=== PATIENT | male | born 1995 | race Caucasian/White ===

== ENCOUNTER 2023-04-29 07:53 | Emergency (ER) | payer OTHER, SELFPAY ==
[2023-04-29 08:02] VITALS: BP 116/68
--- NOTE | 2023-04-29 09:21 | ED.GENMED ---
History of Present Illness
General
Chief Complaint: Medication Reaction
Source: patient
Exam Limitations: none
Time Seen by Provider: 04/29/23 08:52
Nursing documentation reviewed up to this point in time: agreed with
Travel History
Have you had any contact with someone who has COVID-19?: No
Do you have any symptoms of coronavirus? Fever > 100 degrees, chills, cough, shortness of breath, sore throat, loss of taste or smell, muscle aches, or headache?: No
History of Present Illness
History of Present Illness:
27-year-old male presents emergency department due to feeling disconnected and numb, and concerned that the medications are causing this. He is depressed. He is looking for more help.
Past History
Past History
ED Past Medical History: Psychiatric (depression, anxiety)
ED Past Surgical History: Appendectomy
Social History
Tobacco: Non-smoker
Alcohol: Occasional
Drug: None
Personal: Single
Living: with family
Employment: Employed ([employer])
Family History
Family History: Other (Noncontributory)
Review of Systems
Review of Systems
Allergies reviewed?: Yes
All Other Systems: Not applicable
Constitutional: Reports no symptoms
EENT: Reports no symptoms
Respiratory: Reports no symptoms
Cardiac: Reports no symptoms
ABD/GI: Reports no symptoms
: Reports no symptoms
Musculoskeletal: Reports no symptoms
Skin: Reports no symptoms
Neurological: Reports numbness
Endocrine: Reports no symptoms
Hematologic/Lymphatic: Reports no symptoms
Psychiatric: Reports depression
Phy Exam
Physical Exam
Physical Exam:
Physical Exam
General: no apparent distress, not acutely ill
Neck: supple. no meningeal signs. normal posterior pharynx
Heart: s1/s2 regular rate and rhythm, no murmur. equal radial
pulses.
HEENT: Pupils equal round reactive to light, EOMI
Lungs: no acute respiratory distress. clear bilaterally
Abdomen: normal bowel sounds. not tender. no CVAT
Neuro: alert and oriented. no focal neurological deficits cranial nerves II through XII intact
Skin: no rash
Psychiatric: well kept. interactive and cooperative
Extremities: no edema. no calf tenderness. negative homans. good distal pulses
Course
Orders/Labs/Results
Orders:
Orders
04/29/23 09:18
Electrocardiogram (*1) Stat
Reason for Study: Other
Other Reason for Exam: paresthesias
EKG- Treatment ONCE
04/29/23 10:04
Urine Drug Abuse Screen Urgent
Date Specimen was Collected: 04/29/23
Time Specimen was Collected: 09:53
Abnormal Lab Results
04/29/23
10:04
Ur Tricyclics Screen Positive H
(Negative)
Vital Signs
Initial and Last Documented VS:
Initial Vital Signs
Temp Pulse Resp BP Pulse Ox
98.6 F 68 18 116/68 96
04/29/23 08:02 04/29/23 08:02 04/29/23 08:02 04/29/23 08:02 04/29/23 08:02
Last Documented Vital Signs
Temp Pulse Resp BP Pulse Ox
98.6 F 68 18 116/68 96
04/29/23 08:02 04/29/23 08:02 04/29/23 08:02 04/29/23 08:02 04/29/23 08:02
MDM/Problems Addressed
Differential Diagnosis Includes:
Medication interaction, depression
MDM/Problems Addressed:
27-year-old male with depression, possibly medication side effect versus known effect. No signs of dysrhythmia, normal neurologic exam. She will be evaluated further by crisis.
Chronic conditions affecting care: Psychiatric illness (Depression)
Acute Exacerbation and/or Progression of Chronic Illness: Psychiatric illness (Depression)
*Pulse Oximetry
Patient hypoxic: no
*EKG
Interpreted by ED Provider?: Yes
EKG Intrepretation Date: 04/29/23
EKG Intrepretation Time: 09:59
Interpretation: abnormal
Comparison EKG: no comparison EKG present
Heart Rate: 56
Rate: bradycardiac
Rhythm: sinus
[place]: normal axis
Interval: normal interval
QRS Pattern: normal QRS
Ischemia: no ischemia
*Service Station Attendant Interpretation
Rate: Service Station Attendant- N/A
*Critical Care Note
Total Time (30-74mins, 75-104mins- exclusive of procedures): Not Applicable
Patient Management
Social determinants of health affecting care: Living situation and Poor outpatient follow-up
Escalation/DeEscalation of care consider admission/obs:
admit not indicated, will consider psychiatric hospitalization
ED Attending Note
-
Portions of this chart may have been created with voice recognition software.� Occasional wrong word or��sound alike� substitutions may have occurred due to the inherent limitations of voice recognition software.
Discharge Plan
Departure
Patient Disposition: [facility]
Date of Disposition: 04/29/23
Time of Disposition: 12:11
Patient with high blood pressure during this ER visit?: No
Condition: Good
Discharge Problem:
Depression
Instructions: Depression in adults
Prescriptions:
No Action
fluoxetine 20 MG capsule
20 mg PO DAILY
Minipress:
2 mg PO HS
zolpidem 10 MG tablet
10 mg PO HS PRN (Reason: insomnia) Qty: 10 0RF
zolpidem 10 MG tablet
10 mg PO HSPRN PRN (Reason: insomnia) Qty: 5 0RF
cephalexin 500 mg capsule
500 mg PO QID 7 Days Qty: 28 0RF
ondansetron 4 mg Tablet,Disintegrating
4 mg PO TIDPRN PRN (Reason: nausea/vomiting) Qty: 8 0RF
Referrals:
Poonam Correia, DO [Family Provider] -
Interventions
Interventions:
*Risk Screen - Suicide Last Done: 04/29/23 10:11
*General Assessment Last Done: 04/29/23 10:11
*Neglect/Abuse Screening Last Done: 04/29/23 10:11
ED- Fall Risk Assessment Last Done: 04/29/23 12:24
*ED COVID-19 Vaccine History Last Done: 04/29/23 12:24
*Nursing Disposition Last Done: 04/29/23 12:24
ED-Skin Assessment Last Done: 04/29/23 12:24
ED- Pulmonary Assessment Last Done: 04/29/23 10:11
ED-EENT Assessment Last Done: 04/29/23 12:24
Discharge Date and Time
Discharge Date/Time: 04/29/23 12:25
[2023-04-29 10:40] LABS: Amphetamines Negative (Negative); Barbiturates Negative (Negative); Benzodiazepines Negative (Negative); Tricyclic Antidepressants Positive (Negative)
[2023-04-29 10:41] LABS: Buprenorphine Negative (Negative); Cocaine Negative (Negative); Marijuana Negative (Negative); Methadone Negative (Negative); Methamphetamines Negative (Negative); Opiates Negative (Negative); Phencyclidine Negative (Negative)
== END 2023-04-29 12:25 ==
LOC: EMR 07:53
PROVIDERS: EMERGENCY PHYSICIAN Emergency Medicine; FAMILY PHYSICIAN Family Medicine
DX: F32.A Depression, unspecified (principal); F41.9 Anxiety disorder, unspecified; Z90.49 Acquired absence of other specified parts of digestive tract
CPT/HCPCS: 99283; 80306; 93005

== ENCOUNTER 2024-03-07 06:34 | Emergency (ER) | payer OTHER, SELFPAY ==
[2024-03-07 06:40] VITALS: BP 112/68
--- NOTE | 2024-03-07 06:48 | ED.GENMED ---
History of Present Illness
General
Chief Complaint: Abdominal Pain
Time Seen by Provider: 03/07/24 06:48
History of Present Illness
History of Present Illness:
TIME OF INITIAL ENCOUNTER: 7 AM
HPI: Patient presents with left upper quadrant pain along with chest discomfort. This started around 3:30 AM this morning. He reports having an endoscopy 2 years ago when he was diagnosed with celiac disease but reports no abnormality noted to the
stomach. He has an appointment to [facility] tomorrow.
EXAM:
GENERAL: Well appearing in no distress
HEENT: Moist oral mucosa
CARDIOVASCULAR: No murmurs, normal heart rate, regular rhythm, No chest wall tenderness
PULMONARY: No respiratory distress, breath sounds are clear and equal
ABDOMEN: Soft with no peritoneal signs, mild diffuse abdominal tenderness, of note there is some tenderness just with very light touch to the left upper quadrant but no rash
NEUROLOGIC: Excellent strength all extremities, no coordination deficits
PSYCHIATRIC: Appropriate mental status, normal insight and judgement
EXTREMITIES: Nontender, no edema, moves all extremities equally
SKIN: No rash, no lesions
NUMBER AND COMPLEXITY OF PROBLEMS ADDRESSED AT THE ENCOUNTER
� Chronic conditions affecting care: Celiac disease, PTSD, OCD, has had appendectomy in the past
� Acute Exacerbation and/or Progression of Chronic Illness: This is an acute problem
� Differential Diagnosis includes: GERD, pancreatitis, malignancy unlikely (reported weight loss), esophagitis, gastritis, constipation
AMOUNT AND/OR COMPLEXITY OF DATA TO BE REVIEWED AND ANALYZED
� I performed an independent evaluation of and my interpretation is:
EKG: Sinus 58, normal axis, nonspecific ST normality, septal Q waves unchanged from 04/29/2023
CT: CT imaging shows no acute abnormality
X-rays:
Laboratory Studies: CBC and chemistries including lipase and LFTs are normal
Other:
� Review of other/old records: I reviewed records, the patient was seen here with depression in April of this year
� Clinical information was obtained by an independent historian: I spoke to mother at bedside
� Prescriptions/Medications Considered but not given:
� Further testing considered but not performed:
RISK OF COMPLICATIONS AND/OR MORBIDITY OR MORTALITY OF PATIENT MANAGEMENT
� Social determinants of health affecting care: Lives at home
� Discussion with other providers:
� Escalation of care including admission/observation vs risk of discharge considered: CT imaging as well as lab work is unremarkable.
ANY OTHER UPDATES:
9:30 AM: On reassessment, the patient overall reports improvement after Zofran, Pepcid, Protonix was given. I recommended that takes a 2-week course of [id number] omeprazole. He has follow-up with his GI doctor ([facility]) tomorrow.
Past History
Past History
ED Past Medical History: Psychiatric (depression, anxiety)
ED Past Surgical History: Appendectomy
Social History
Tobacco: Non-smoker
Alcohol: Occasional
Drug: None
Personal: Single
Living: with family
Employment: Employed ([employer])
Family History
Family History: Other (Noncontributory)
Phy Exam
Physical Exam
Physical Exam:
See HPI
Course
Orders/Labs/Results
Orders:
Orders
03/07/24 06:44
ECG [Electrocardiogram (*1)] Urgent
Reason for Study: Abdominal Pain
EKG- Treatment ONCE
03/07/24 06:49
Famotidine [Pepcid] 20 mg IV NOW STA
03/07/24 07:05
CT Abd/pelvis W Iv Cont Urgent
Comment:
Reason For Exam: diffuse tender, pain more in LUQ
Troponin I Urgent
03/07/24 07:07
Ondansetron Injectable [Zofran] 4 mg IV NOW STA
03/07/24 07:19
Pantoprazole [Protonix IV] 40 mg .ROUTE .STK-MED ONE
03/07/24 07:29
Pantoprazole [Protonix IV] 40 mg IV NOW STA
03/07/24 07:45
Comprehensive Metabolic Panel Urgent
Lipase Urgent
03/07/24 08:00
Complete Blood Count/With Diff Urgent
03/07/24 08:29
Add On- LAB Urgent
Comments:: Lab cancelled CMP and Lipase, reordered CMP but not lipase
Tests Added?: lipase
Abnormal Lab Results
03/07/24
08:00
MPV 11.8 H fL
(7.4-10.4)
Monocytes % 9.4 H %
(1.7-9.3)
03/07/24 08:00
03/07/24 07:45
Vital Signs
Initial and Last Documented VS:
Initial Vital Signs
Temp Pulse Resp BP Pulse Ox
36.7 C 60 20 112/68 100
03/07/24 06:40 03/07/24 06:40 03/07/24 06:40 03/07/24 06:40 03/07/24 06:40
Last Documented Vital Signs
Temp Pulse Resp BP Pulse Ox
36.7 C 60 18 102/77 100
03/07/24 06:40 03/07/24 09:02 03/07/24 09:02 03/07/24 09:02 03/07/24 06:40
*Critical Care Note
Total Time (30-74mins, 75-104mins- exclusive of procedures): Not Applicable
ED Attending Note
-
Portions of this chart may have been created with voice recognition software.� Occasional wrong word or��sound alike� substitutions may have occurred due to the inherent limitations of voice recognition software.
Discharge Plan
Departure
Patient Disposition: Home (Routine Discharge)
Date of Disposition: 03/07/24
Time of Disposition: 09:28
Patient with high blood pressure during this ER visit?: Yes
Discharge Problem:
GERD (gastroesophageal reflux disease)
Instructions: Acid Reflux and GERD in Adults (DC)
Prescriptions:
New
ondansetron HCl 4 mg tablet
4 mg PO Q6H PRN (Reason: nausea and vomiting) Qty: 14 0RF
No Action
fluoxetine 20 MG capsule
20 mg PO DAILY
Minipress:
2 mg PO HS
zolpidem 10 MG tablet
10 mg PO HS PRN (Reason: insomnia) Qty: 10 0RF
zolpidem 10 MG tablet
10 mg PO HSPRN PRN (Reason: insomnia) Qty: 5 0RF
cephalexin 500 mg capsule
500 mg PO QID 7 Days Qty: 28 0RF
ondansetron 4 mg Tablet,Disintegrating
4 mg PO TIDPRN PRN (Reason: nausea/vomiting) Qty: 8 0RF
Referrals:
Poonam Correia, DO [Family Provider] -
Activity Restrictions/Additional Instructions:
Your symptoms may be related to GERD. I sent a prescription for Zofran to your pharmacy (for nausea). I recommend you take a 2-week course of [id number] omeprazole. Follow-up with your GI doctor tomorrow. Basic blood work including liver
and pancreas tests were normal. Return here if worse or other concerns. We also checked your heart number which shows no sign of heart attack.
CAT scan report:
Liver: Within normal limits.
Gallbladder: Unremarkable.
Bile Ducts: No bile duct dilatation.
Pancreas: Within normal limits.
Spleen: Normal in size.
Adrenals: No adrenal mass.
Kidneys/Ureters: No obstructive uropathy.
Bowel: No obstruction or wall thickening. Mild colonic fecal burden.
Appendix: Absent.
Peritoneum: No ascites or free air.
Vessels: No aortic aneurysm.
Retroperitoneum: No retroperitoneal periaortic mass or adenopathy.
Abdominal Wall: No anterior abdominal wall hernia.
Pelvis:
No free fluid or focal collection. No inflammatory reaction. No sidewall adenopathy or mass.
Interventions
Interventions:
*Risk Screen - Suicide Last Done: 03/07/24 06:40
*Neglect/Abuse Screening Last Done: 03/07/24 06:40
AG-[id number]-[id number] Assessment Last Done: 03/07/24 06:44
Discharge Date and Time
Print Language: NEPALI
[2024-03-07 06:52] VITALS: BP 104/75
[2024-03-07 07:00] VITALS: BP 116/72
[2024-03-07] MEDS: PEPCID 20 MG IV (07:31)
[2024-03-07] MEDS: ZOFRAN 4 MG IV (07:31)
[2024-03-07] MEDS: PROTONIX IV 40 MG IV (07:32)
[2024-03-07 07:51] LABS: Troponin I < 0.012 ng/ml
[2024-03-07 08:05] LABS: ALT (SGPT) 26 U/L (0-50); AST (SGOT) 30 U/L (17-59); Albumin 4.9 g/dl (3.5-5.0); Alkaline Phosphatase 57 U/L (38-126); Blood Urea Nitrogen 19 mg/dl (9-20); Calcium 10.2 mg/dl (8.4-10.2); Carbon Dioxide 25 mmol/L (22-30); Chloride 105 mmol/L (98-107); Glucose 92 mg/dl (70-99); Lipase 152 U/L (23-300); Potassium 4.7 mmol/L (3.5-5.1); Sodium 142 mmol/L (135-145); Total Bilirubin 0.5 mg/dl (0.2-1.3); Total Protein 7.7 g/dl (6.3-8.2); eGFR > 60.00
[2024-03-07 08:08] VITALS: BP 106/61
[2024-03-07 09:02] VITALS: BP 102/77
[2024-03-07 09:15] LABS: % Basophils 1.4 % (0-2); % Eosinophils 3.1 % (0-6); % Immature Granulocytes 0.2 % (0-0.5); % Lymphocytes 36.1 % (20.5-51.1); % Monocytes 9.4 % (1.7-9.3); % Neutrophils 49.8 % (42.2-75.2); Absolute Basophils 0.1 10^3/uL (0-0.2); Absolute Eosinophils 0.2 10^3/uL (0-0.7); Absolute Lymphocytes 1.8 10^3/uL (1.2-3.4); Absolute Monocytes 0.5 10^3/uL (0.1-0.6); Absolute Neutrophils 2.4 10^3/uL (1.4-6.5); Hematocrit 43.9 % (39.0-52.0); Hemoglobin 14.9 g/dL (13.0-18.0); Mean Corp Hgb Conc. 33.9 g/dL (33.0-37.0); Mean Corpuscular Hgb 28.4 pg (27.0-31.0); Mean Corpuscular Volume 83.8 fL (80.0-94.0); Mean Platelet Volume 11.8 fL (7.4-10.4); Nucleated Red Blood Cells % 0 % (-); Platelet Count 214 10^3/uL (130-400); Red Blood Cell Count 5.24 10^6/uL (4.70-6.10); White Blood Cell Count 4.9 10^3/uL (4.8-10.8)
== END 2024-03-07 09:37 | disposition home or self-care (01) ==
LOC: EMR 06:34
PROVIDERS: EMERGENCY PHYSICIAN Emergency Medicine; FAMILY PHYSICIAN Family Medicine
DX: K21.9 Gastro-esophageal reflux disease without esophagitis (principal)
CPT/HCPCS: 96374; 96375; 99284; 74177; 80053; 83690; 84484; 85025; 93005; Q9967

== ENCOUNTER 2024-03-12 09:16 | Emergency (ER) | payer OTHER, SELFPAY ==
[2024-03-12 09:18] VITALS: BP 133/70
[2024-03-12 10:17] VITALS: BP 127/80
[2024-03-12] MEDS: TYLENOL 1000 MG PO (10:32)
[2024-03-12] MEDS: ZOFRAN 4 MG IV (10:32)
[2024-03-12] MEDS: NSS 1000 IV (10:33)
--- NOTE | 2024-03-12 10:44 | ED.GENMED ---
History of Present Illness
<Beronica Saul MD, Resident - Last Filed: 03/12/24 10:59>
General
Chief Complaint: Dizziness
Time Seen by Provider: 03/12/24 09:53
History of Present Illness
History of Present Illness:
28 y/o male with pmhx of celiac disease, sleep apnea and PTSD presenting to the ED with dizziness, headache and vomiting. Pt notes woke up this morning at 5 am, and had a severe left sided headache (radiating to the left retroorbital) and felt dizzy
when standing up. Was walking to his truck when patient vomited. On his drive to work, patient had blurry vision and had to press puller. Denies vertigo, sensation loss, LOC, weakness, fever. Has had previous headaches but notes this time is more
severe (8/10). Called his PCP and was told to come to the hospital. Patient also notes loss of balance while walking but no fall. Also notes sharb chest pain on his left hemithorax that gets worse with movement. Patient is scheduled for colonoscopy
and endoscopy next week for blood in rectum and weight loss (20 lbs within 6 weeks, but notes loss of appetite). Patient notes chest pain is chronic and also SOB after climbing one flight of stairs.
Past History
<Beronica Saul MD, Resident - Last Filed: 03/12/24 10:59>
Past History
ED Past Medical History: Psychiatric (depression, anxiety) and Other (Sleep apnea, celiac disease)
ED Past Surgical History: Appendectomy and Orthopedic (Right tibial fracture)
Social History
Tobacco: Non-smoker
Alcohol: Occasional
Drug: None
Personal: Single
Living: with family
Employment: Employed ([employer])
Family History
Family History: Other (Noncontributory)
Review of Systems
<Beronica Saul MD, Resident - Last Filed: 03/12/24 10:59>
Review of Systems
Constitutional: Reports weight loss
EENT: Reports no symptoms
Respiratory: Reports no symptoms
Cardiac: Reports chest pain
ABD/GI: Reports nausea and vomiting
: Reports no symptoms
Musculoskeletal: Reports no symptoms
Skin: Reports no symptoms
Neurological: Reports dizzy and headache
Endocrine: Reports no symptoms
Hematologic/Lymphatic: Reports no symptoms
Psychiatric: Reports anxiety
Phy Exam
<Beronica Saul MD, Resident - Last Filed: 03/12/24 10:59>
Physical Exam
Physical Exam:
GENERAL: Alert, in no apparent distress.
EYE: pupils equal and reactive. No nystagmus.
NECK: Supple, no significant adenopathy.
ENT: o/p clr, mmm.
CARDIAC: Regular rhythm. Tachycardia. Tenderness on palpation of chest.
LUNGS: Clear breath sounds bilaterally, no acute respiratory distress, no wheezes/rales/rhonchi
ABDOMEN: Soft, without focal tenderness, no r/g, no cvat.
NEUROLOGICAL: Alert and oriented, no focal neuro deficits. Heel to gardner, finger to nose: negative
SKIN: Warm and dry, skin intact.
MUSCULOSKELETAL: No edema, well perfused. Muscle strength: 5/5
PSYCH: Normal and appropriate interaction. Appears anxious.
Course
<Beronica Saul MD, Resident - Last Filed: 03/12/24 10:59>
Orders/Labs/Results
Orders:
Orders
03/12/24 10:19
Electrocardiogram (*1) Urgent
Reason for Study: Chest Pain
EKG- Treatment ONCE
Acetaminophen [Tylenol] 1,000 mg PO NOW STA
Ondansetron Injectable [Zofran] 4 mg IV NOW STA
03/12/24 10:21
CT Head W/o Iv Contrast Urgent
Comment:
Reason For Exam: headache, dizziness
03/12/24 10:24
0.9% Sodium Chloride 1000 ml [Nss] 1,000 ml IV BOLUS
03/12/24 11:17
COVID-19 Antigen Urgent
Source: Nasal Swab
Complete Blood Count/With Diff Urgent
Troponin I Urgent
Influenza A+B Rapid Molecular Urgent
MALINA Source: Nasal Swab
Specimen Description:
03/12/24 11:51
Comprehensive Metabolic Panel Urgent
Lipase Urgent
03/12/24 12:31
Ketorolac [Toradol] 15 mg IV NOW STA
US Abdomen Complete/Upper Urgent
Comment:
Reason For Exam: RUQ pain, nausea, vomiting
Abnormal Lab Results
03/12/24
11:17
MPV 11.7 H fL
(7.4-10.4)
Monocytes % 10.4 H %
(1.7-9.3)
03/12/24 11:17
03/12/24 11:51
Vital Signs
Initial and Last Documented VS:
Initial Vital Signs
Pulse Resp BP Pulse Ox
71 18 133/70 99
03/12/24 09:18 03/12/24 09:18 03/12/24 09:18 03/12/24 09:18
Last Documented Vital Signs
Temp Pulse Resp BP Pulse Ox
36.6 C 59 12 101/62 99
03/12/24 13:46 03/12/24 12:30 03/12/24 12:30 03/12/24 14:00 03/12/24 14:15
<Bong Mendoza MD - Last Filed: 03/12/24 16:26>
Orders/Labs/Results
Orders:
Orders
03/12/24 10:19
Electrocardiogram (*1) Urgent
Reason for Study: Chest Pain
EKG- Treatment ONCE
Acetaminophen [Tylenol] 1,000 mg PO NOW STA
Ondansetron Injectable [Zofran] 4 mg IV NOW STA
03/12/24 10:21
CT Head W/o Iv Contrast Urgent
Comment:
Reason For Exam: headache, dizziness
03/12/24 10:24
0.9% Sodium Chloride 1000 ml [Nss] 1,000 ml IV BOLUS
03/12/24 11:17
COVID-19 Antigen Urgent
Source: Nasal Swab
Complete Blood Count/With Diff Urgent
Troponin I Urgent
Influenza A+B Rapid Molecular Urgent
MALINA Source: Nasal Swab
Specimen Description:
03/12/24 11:51
Comprehensive Metabolic Panel Urgent
Lipase Urgent
03/12/24 12:31
Ketorolac [Toradol] 15 mg IV NOW STA
US Abdomen Complete/Upper Urgent
Comment:
Reason For Exam: RUQ pain, nausea, vomiting
Abnormal Lab Results
03/12/24
11:17
MPV 11.7 H fL
(7.4-10.4)
Monocytes % 10.4 H %
(1.7-9.3)
03/12/24 11:17
03/12/24 11:51
Vital Signs
Initial and Last Documented VS:
Initial Vital Signs
Pulse Resp BP Pulse Ox
71 18 133/70 99
03/12/24 09:18 03/12/24 09:18 03/12/24 09:18 03/12/24 09:18
Last Documented Vital Signs
Temp Pulse Resp BP Pulse Ox
36.6 C 59 12 101/62 99
03/12/24 13:46 03/12/24 12:30 03/12/24 12:30 03/12/24 14:00 03/12/24 14:15
<Beronica Saul MD, Resident - Last Filed: 03/12/24 10:59>
MDM/Problems Addressed
Differential Diagnosis Includes:
Intracranial hemorrhage
ACS
Stroke
Migraine
Tension headache
Vasovagal
Panic attack
MDM/Problems Addressed:
- EKG, Troponin
- CBC, CMP
- CT Head w/o contrast
- COVID, Flu
- IVF
- Pain management
<Beronica Saul MD, Resident - Last Filed: 03/12/24 10:59>
*Critical Care Note
Total Time (30-74mins, 75-104mins- exclusive of procedures): Not Applicable
ED Attending Note
<Beronica Saul MD, Resident - Last Filed: 03/12/24 10:59>
-
Portions of this chart may have been created with voice recognition software.� Occasional wrong word or��sound alike� substitutions may have occurred due to the inherent limitations of voice recognition software.
<Bong Mendoza MD - Last Filed: 03/12/24 16:26>
ED Attending Note
Patient seen and examined by attending physician: Yes
I performed a history and physical exam of patient and discussed management with resident, I reviewed resident's note and agree with documented findings and plan of care.: Yes
ED Attending Note:
I have seen and evaluated the patient with a [id number] encounter. I have spoken to the resident and involved in the medical history, the physical exam, medical decision making.
Evaluation and management service: agree unless noted differently below.
Results interpretation: agree unless noted differently below.
Focused HPI: 28-year-old male with a past medical history of sleep apnea and PTSD presents to the emergency room with his sister for evaluation of headache, nausea, vomiting, dizziness. Patient reports that he woke up this morning around 5 AM to go
to work and while he was walking out to his truck he became very nauseated and vomited. He says that he noticed he was having a left-sided headache. He sat in his truck in the heat for a bit and drink some water and he was able to drive to work.
He says that on the way to work he was feeling a room spinning sensation/dizziness and was having some blurry vision�he describes that when he looks at light it appears blurry. He says that his symptoms were not improving and so he called his
primary doctor and apparently had a telemedicine visit and was told that he should be evaluated in the emergency room. He says that since arrival his symptoms have resolved with the exception of his headache. He says he no longer notices any
blurry vision or room spinning/dizziness. He has not had any recent illness/URI symptoms but does report that over the past few months he has been having postprandial nausea and abdominal discomfort as well as unintentional weight loss due to poor
food intake due to the symptoms. He says he is scheduled for upper and lower endoscopy as an outpatient within the next month.
Physical exam: Awake and alert, oriented x 3 and not in distress. His vital signs are all within normal limits. His head is normocephalic and atraumatic. He has a supple neck without meningeal signs. His pupils are equal round and reactive to
light bilaterally, approximately 4 mm. Extraocular movements are intact and he has no nystagmus. He has a negative Jos-Hallpike. His TMs are clear bilaterally. He has no cardiac rubs gallops or murmurs. His abdomen is soft, mildly tender in the
upper abdomen. His lungs are clear to auscultation bilaterally. Cranial nerves are intact 2 through 12 and speech is fluid with no dysarthria or aphasia. He has no limb ataxia. Motor and sensory function is intact and symmetric in the upper and
lower extremities both proximally and distally.
Medical Decision Makin-year-old male presents for evaluation after episode of nausea and vomiting associated with vertiginous symptoms and left-sided headache. Symptoms have improved although headache remains. He also reports that he has been
dealing with abdominal pains and nausea related to food and resultant weight loss over the past few months. Scheduled for outpatient GI follow-up. Vitals and exam as above. Will check labs including CBC and a CMP, lipase. Will check swabs for
COVID and flu. Check CT head. Check upper abdominal ultrasound. Check an EKG and troponin. Will treat symptomatically and reassess after the above.
Labs reviewed: CBC unremarkable, CMP no clinically significant abnormalities�notably normal LFTs. Lipase is normal. Troponin is undetectable and EKG showed sinus rhythm with no ischemic changes. CT head was negative for any acute pathology and
upper abdominal ultrasound although limited in evaluation of pancreas shows no cholelithiasis or other acute pathology. Clinical reassessment patient is feeling much better he says headache had resolved. He is walking around the room without any
dizziness or gait issues. Suspect likely peripheral vertigo caused his dizziness and vomiting today. Unclear cause for his chronic abdominal discomfort and weight loss but he is already scheduled for GI workup to this and and I think this can
proceed as an outpatient�no clear indication for hospital admission. Patient feels comfortable discharge. Spoke about return precautions and all questions answered.
Discharge Plan
Departure
Patient Disposition: Home (Routine Discharge)
Date of Disposition: 03/12/24
Time of Disposition: 14:17
Patient with high blood pressure during this ER visit?: No
Discharge Problem:
Vertigo, Headache, Abdominal pain
Instructions: Vertigo (a Type of Dizziness) (DC)
Prescriptions:
New
ondansetron 4 mg tablet,disintegrating
4 mg PO TIDPRN PRN (Reason: nausea/vomiting) Qty: 20 0RF
No Action
fluoxetine 20 MG capsule
20 mg PO DAILY
Minipress:
2 mg PO HS
zolpidem 10 MG tablet
10 mg PO HS PRN (Reason: insomnia) Qty: 10 0RF
zolpidem 10 MG tablet
10 mg PO HSPRN PRN (Reason: insomnia) Qty: 5 0RF
cephalexin 500 mg capsule
500 mg PO QID 7 Days Qty: 28 0RF
ondansetron 4 mg Tablet,Disintegrating
4 mg PO TIDPRN PRN (Reason: nausea/vomiting) Qty: 8 0RF
ondansetron HCl 4 mg tablet
4 mg PO Q6H PRN (Reason: nausea and vomiting) Qty: 14 0RF
Referrals:
Poonam Correia, DO [Family Provider] - Follow up in 2-3 days
Stand Alone Forms: Return to Work
Activity Restrictions/Additional Instructions:
Thank you for visiting the Emergency Department at [facility].
1. Please schedule a follow up appointment as directed. Call first thing tomorrow morning to make an appointment.
2. If indicated, please take your medications as instructed and indicated on discharge paperwork.
3. If any of your symptoms do not improve, or persist, or become more severe within 6-12 hours, please return to the emergency department for further care.
4. Please return to the emergency department if you develop a headache, neck pain/stiffness, fever greater than 100.4F, chest pain, shortness of breath, persistent nausea, vomiting, slurred speech, difficulty walking, numbness/tingling, weakness,
signs of infection or any other symptoms that are worrisome to you.
Please call [phone] if you have any questions.
Interventions
Interventions:
*Risk Screen - Suicide Last Done: 03/12/24 09:18
*General Assessment Last Done: 03/12/24 09:18
*Neglect/Abuse Screening Last Done: 03/12/24 09:18
*Nursing Disposition Last Done: 03/12/24 14:56
ED- Neurological Assessment Last Done: 03/12/24 10:23
ED Swallowing Screen Last Done: 03/12/24 10:23
Discharge Date and Time
Discharge Date/Time: 03/12/24 14:56
Print Language: JAPANESE
[2024-03-12 11:16] VITALS: BP 109/62; BMI 35.4
[2024-03-12 11:38] LABS: % Basophils 1.3 % (0-2); % Immature Granulocytes 0.2 % (0-0.5); % Lymphocytes 34.5 % (20.5-51.1); % Monocytes 10.4 % (1.7-9.3); % Neutrophils 50.6 % (42.2-75.2); Absolute Basophils 0.1 10^3/uL (0-0.2); Absolute Eosinophils 0.2 10^3/uL (0-0.7); Absolute Lymphocytes 1.9 10^3/uL (1.2-3.4); Absolute Monocytes 0.6 10^3/uL (0.1-0.6); Absolute Neutrophils 2.8 10^3/uL (1.4-6.5); Hematocrit 41.9 % (39.0-52.0); Hemoglobin 14.8 g/dL (13.0-18.0); Mean Corp Hgb Conc. 35.3 g/dL (33.0-37.0); Mean Corpuscular Hgb 29.2 pg (27.0-31.0); Mean Corpuscular Volume 82.8 fL (80.0-94.0); Mean Platelet Volume 11.7 fL (7.4-10.4); Nucleated Red Blood Cells % 0 % (-); Platelet Count 219 10^3/uL (130-400); Red Blood Cell Count 5.06 10^6/uL (4.70-6.10); White Blood Cell Count 5.6 10^3/uL (4.8-10.8)
[2024-03-12 11:46] LABS: COVID-19 Antigen Negative (Negative)
[2024-03-12 12:01] LABS: Troponin I < 0.012 ng/ml
[2024-03-12 12:31] LABS: ALT (SGPT) 25 U/L (0-50); AST (SGOT) 29 U/L (17-59); Albumin 4.2 g/dl (3.5-5.0); Alkaline Phosphatase 52 U/L (38-126); Blood Urea Nitrogen 14 mg/dl (9-20); Calcium 9.1 mg/dl (8.4-10.2); Carbon Dioxide 28 mmol/L (22-30); Chloride 104 mmol/L (98-107); Estimated Creatinine Clearance 115 ml/min; Glucose 89 mg/dl (70-99); Lipase 121 U/L (23-300); Potassium 4.1 mmol/L (3.5-5.1); Sodium 140 mmol/L (135-145); Total Bilirubin 0.4 mg/dl (0.2-1.3); Total Protein 6.6 g/dl (6.3-8.2); eGFR > 60.00
[2024-03-12] MEDS: TORADOL 15 MG IV (12:33)
[2024-03-12 14:00] VITALS: BP 101/62
== END 2024-03-12 14:56 | disposition home or self-care (01) ==
LOC: EMR 09:16
PROVIDERS: EMERGENCY PHYSICIAN Emergency Medicine; FAMILY PHYSICIAN Family Medicine
DX: R42 Dizziness and giddiness (principal); R51.9 Headache, unspecified; R10.9 Unspecified abdominal pain; F43.10 Post-traumatic stress disorder, unspecified; F41.8 Other specified anxiety disorders; G47.30 Sleep apnea, unspecified; K90.0 Celiac disease; Z90.49 Acquired absence of other specified parts of digestive tract
CPT/HCPCS: 99284; 96374; 96375; 96361; 70450; 76700; 80053; 83690; 84484; 85025; 87502; 87811; 93005